=== PATIENT | female | born 1970 | race Caucasian/White ===

== ENCOUNTER 2024-10-27 10:52 | Outpatient (AMB) | payer OTHER, SELFPAY ==
[2024-10-27 11:03] VITALS: BP 130/82; PULSE 65; O2SAT 96; BMI 44.4
--- NOTE | 2024-10-27 11:03 | A.OFFVIS_ITS ---
Vital Signs 3 10/27/24 11:03 Height 5 ft 2 in Weight 242 lb 11.663 oz BMI 44.4 BP 130/82 Blood Pressure Location Lt brachial Position Sitting Pulse 65 Pulse Source Pulse Oximeter Pulse Oximetry (%) 96 Oxygen Delivery Method Room Air Intake Visit Reasons: Hx of papillary ca thyroid Intake Note: Patient present today for history of papillary ca thyroid. 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 History of PTC Had history of MNG, in her 30s , thinks she saw Dr. Lyles at some point , likely at [facility] Doesnt think she has FNAs, was referred to surgery for compressive symptoms 2013: s/p total thyroidectomy with Dr. Anu Jones at [facility]. was told there was PTC , but we dont have initial pathology available so not sure of AJCC stage, or JONATHAN initial Thinks she had a WBS a few years post surgery , not sure when , maybe diagnostic? Doesnt remember being hospitalized. Was following with Dr. Lyles at [facility] after with US neck and Tg levels, then saw Dr. Dutta in [place] for some time. last seen 2020. No recent neck US No recent Tg levels 09/27/24: TSH 49.5, free t4 0.62 Currently on levothyroxine 225 mcg daily , increased from 200 mcg a month ago. Takes it on an empty stomach at 4 or 5 AM in the morning , spaces breakfast out. Palpitations associated with anxiety, no tremors . Gained 30 lbs over end of 2023 and 2024 , due to lack of activity due to foot injury. Intermittent difficulty swallowing, nothing bothersome. Denies neck fullness , any lumps or bumps. Denies voice changes. Sister had thyroid disease. Niece from another sister has history of papillary thyroid cancer. No history of head or neck radiation Does have history of uterine cancer s/p hystrectomy, they left her ovaries intact in 2010, did not require chemo or radiation, doing well, following with [facility] Physical exam General: sitting comfortably in no acute distress HEENT: normocephalic/atraumatic, Neck: supple, symmetrical, Cardiac: normal heart sounds Pulm: normal breath sounds B/L, no added breath sounds Abd: not distended, no tenderness Extremities: no edema, no signs of myxedema PFSH Medical History (Updated 10/27/24 @ 11:39 by Jamila Dupont MD) Post-surgical hypothyroidism History of thyroid cancer Surgical History History of hysterectomy, supracervical Hx of dilation and curettage History of surgery Hx of section Hx of tonsillectomy Hx of total thyroidectomy Family History Mother Diabetes Hyperlipidemia History of hypertension Stroke Father Diabetes History of hypertension Hyperlipidemia Stroke GI bleed Social History (Updated 10/27/24 @ 11:09 by AMALIA Leigh) Alcohol intake: current Alcohol intake frequency: holidays/special occasions only Patient Tobacco Use Status: Never used Tobacco Physical Exam Vital Signs: Last Vital Signs Pulse 65 10/27/24 11:03 BP 130/82 10/27/24 11:03 Pulse Ox 96 10/27/24 11:03 Oxygen Delivery Method Room Air 10/27/24 11:03 BMI result Body Mass Index 44.4 Assessment & Plan Assessment & Plan (1) History of thyroid cancer: Code(s): Z85.850 - Personal history of malignant neoplasm of thyroid Category: Medical Plan: 53-year-old female with history of PTC, who was diagnosed with multinodular goiter sometime in her 30s, status post total thyroidectomy [address] Anu Jones at [facility], with surgical pathology showing PTC. I do not have any initial records of the pathology so unknown AJCC stage, unknown initial JONATHAN risk of recurrence. She was followed for a couple of years 1st at [facility] with Dr. Lyles then she switched care to Dr. Dutta in [facility] , she does not think she got radioactive iodine dose but at some point she had a whole-body scan. Has had surveillance ultrasound neck. She has not had any thyroid cancer follow up since 2020. At this time we will obtain an ultrasound of the neck as well as TG markers. We will try to obtain her previous records. on levothyroxine 225 mcg daily. Increased from 200 mcg daily about 4 weeks ago, when she was noted to have TSH at 49.5, with a free T4 low at 0.62. Depending on TG levels and ultrasound we will determine her TSH goal. At this time she has been doing well for over 10 years with no signs of recurrence. Likely TSH goal would be between 0.5-2. Plan: -obtain prior endocrinology records along with surgical pathology from 2012 -continue levothyroxine 225 mcg daily -ordered TSH, free T4, TG and TG antibody levels to be done in 2 weeks -ordered ultrasound of the neck -follow up in 7-8 weeks to discuss results (2) Post-surgical hypothyroidism: Code(s): E89.0 - Postprocedural hypothyroidism Category: Medical Plan: on levothyroxine 225 mcg daily. Increased from 200 mcg daily about 4 weeks ago, when she was noted to have TSH at 49.5, with a free T4 low at 0.62. Depending on TG levels and ultrasound we will determine her TSH goal. At this time she has been doing well for over 10 years with no signs of recurrence. Likely TSH goal would be between 0.5-2. Plan: -continue levothyroxine 225 mcg daily -ordered TSH, free T4 to be done in 2 weeks Plan I spent 45 minutes in reviewing the record, seeing the patient and documenting in the medical record. Orders: Orders 2 Thyroid Stimulating Hormone 1 Week E89.0 - Postprocedural hypothyroidism, Z85.850 - Personal history of malignant neoplasm of thyroid Thyroglobulin 1 Week E89.0 - Postprocedural hypothyroidism, Z85.850 - Personal history of malignant neoplasm of thyroid Thyroglobulin Antibodies 1 Week E89.0 - Postprocedural hypothyroidism, Z85.850 - Personal history of malignant neoplasm of thyroid Thyroglobulin Tumor Marker 1 Week E89.0 - Postprocedural hypothyroidism, Z85.850 - Personal history of malignant neoplasm of thyroid Free T4 (Free Thyroxine) 1 Week E89.0 - Postprocedural hypothyroidism, Z85.850 - Personal history of malignant neoplasm of thyroid US soft tiss head and/or neck Today E89.0 - Postprocedural hypothyroidism, Z85.850 - Personal history of malignant neoplasm of thyroid Patient Instructions: do blood work in 2 weeks Do ultrasound of the neck ,someone will call you to schedule this Please make sure it is done prior to follow up Coding Level of Care Code New Pt Level 4 (34226) Complex EM visit Add On G2211 Diagnoses History of thyroid cancer Z85.850 Post-surgical hypothyroidism E89.0 Time Spent (min) 45
--- OUTSIDE RECORDS SUMMARY | 2024-10-27 11:43 | XMS_ITS | Data Portability ---
Author Organization [place] - [facility],, GYPSY OH MD Address [address] [facility] [address] [place] [address] Assessment No assessment recorded. Plan of Treatment Reminders Order Date Submit Date Provider Last Modified By Organization Details Last Modified Time Details Appointments None recorded. Lab pap, LB, vaginal 2014 015 [facility], Cytopathology Service, [address] [place], [address], 5 11:33:36 fecal occult blood, stool 2014 015 [email or web address] 1 In-Office Order, Internal Use Only DO Not Attach Compendium DO Not Attach Compendium, Do Not Delete/merge, [id number] 5 11:21:53 ca 125, serum 2014 015 [facility], [address] [place], [address], 5 05:00:15 Referral None recorded. Procedures None recorded. Surgeries None recorded. Imaging ultrasoun d, pelvic transabdo beverly & transvagi nal - six month follow up after 11/2014 sonogram for likely 8 cm hydrosalp inx 2014 015 [facility] ([facility]), [address] [place], [address], 6 16:08:09 MAMMO, screening , digital, bilateral [email or web address] [address] [place], [address], 6 09:32:12 ultrasoun d, pelvic transabdo beverly & transvagi nal - repeat sonogram 6 weeks from 10/10/14, to assess the right ovarian cyst and left hydrosalp inx 2014 015 [facility]), [address] [place], [address], 5 09:21:07 ultrasoun d, pelvic transabdo beverly & transvagi nal - bilateral pelvic cystic masses, on CT, largest on left side is 9 cm by 5 cm 2014 015 [facility]), [address] [place], [address], 5 14:32:22 Medication Orders None recorded. Patient TargetsNo targets recorded. Patient Instructions Encounter Date Encounter Id Patient Instructions Last Modified By Organization Details Last Modified Time 09/12/2014 [id number] She is here as a new patient in this office, although I performed her hysterectomy at [facility] in 2008. She is seeing Dr. Martin for renal stones and was incidentally found to have a left adnexal 9 by 5 cm and right sided 5 by 3 cm tubular structures. She had a IVONNE in 2008, for precancer , and a prior section, did not have a tubal ligation. She is raising her 5 year old grandson, her has serious Crohn's disease and is presently hospitalized with infection ,she missed two months of work, recently, due to sciatica, it has been a difficult few years for her. Her PCP did a pap a year ago, it was normal. We discussed that based on the CT scan she may have ovarian cysts, or this could be, more likely, bilateral hydrosalpinx. Will check CA 125 and pelvic sonogram then return for annual exam and discussion of management options. We discussed possible Da Ramon excision of these masses, she is aware . Models and diagrams used, all questions answered. She is not symptomatic and would prefer to have her renal stones addressed first, and await her 's recovery from this present hospitalization before considering surgery. IF the tests suggest hydrosalpinx, and there is no significant free fluid, then this can likely wait a month or two. Face to face discussion 45 minutes [email or web address] Not available 09/12/2014 11:26:11 10/16/2014 [id number] She is here, accompanied by her sister, to discuss her recent pelvic sonogram that showed an 8 cm likely hydrosalpinx on the left and a 3.5 cm simple cyst of the right ovary. she is having no pain or issues with these, she does have renal stones. We had a long discussion concerning these issues. There is no increased blood flow to either structure, no free fluid, the cyst is simple and the tubular structure unremarkable save for its size. The CA 125 is normal, at 5. Likely each of these findings are benign, although they are aware that no guarantees can be made. The most reasonable course of action is to repeat the sonogram in 6 weeks to reassess the ovarian cyst. If it resolves then she could wait and follow the tubular structure over time, as it is likely a hydrosalpinx. If the cyst of the ovary persists then it may be a serous cystadenoma, and if it persists for longer than 3 months then would suggest minimally invasive surgery to address both the cyst and the tubular structure. All questions answered. Call if any pain occurs, repeat sonogram in 6 weeks. Face to face discussion 25 minutes [email or web address] Not available 10/16/2014 14:36:09 11/09/2014 [id number] She is here for annual exam, is doing well, her kidney stones lithotripsy and the stones are breaking up and passing now, she is hoping to have them all gone soon. She has an 8 cm hydrosalpinx and 3.5 cm ovarian cyst, repeat sonogram is for the end of November, then we will discuss surgical options. Her has severe Crohn's Disease and has been hospitalized several times recently , was at [facility]. She is taking Trazadone for sleep prn, usually twice a month. She appears to be doing well. She is advised to get 1500 mg of calcium daily into her diet and supplements combined. There is a health benefit with adequate vitamin D supplementation to at least 400 units daily, daily aerobic exercise of 30 minutes, and stress reduction. Monthly self breast exam was taught, and stressed, and is advised to call if she discovers any new mass in the breast. Seat belt use for herself and passengers are advised. There are significant health benefits of becoming and remainig fit, with an optimal BMI. There is a potential reduction in chronic discomfort, diminished risks of hypertension, diabetes, and heart disease with the proper weight management. With a recommended BMI there can be improved mobility as she ages. Strategies to reach and maintain her target weight were discussed in detail. Not available 11/09/2014 11:21:53 12/08/2014 [id number] She has a stable 8 by 3 cm hydrosalpinx. We discussed that it has no suspicious features and is not symptomatic, she has the option to follow this expectantly. Possible risks of surgery due to prior section and hysterectomy discussed, all questions answered. Will repeat sono in 6 months and have her call earlier prn. All questions answered. Face to face discussion 25 minutes Not available 12/08/2014 16:07:11 Reason for Referral None Reported. Results Created Date Observation Date Name Description Value Unit Range Abnormal Flag Note LastModifiedBy Organization Detail LastModifiedTime 11/10/1911/09/2014 fecal occul t blood , stool Occult Blood negati ve Not Available In-Office Order Internal Use Only DO Not Attach Compendium DO Not Attach Compendium, Do Not Delete/merge, [id number] 11/09/2014 11:05:58 09/13/19 15 09/12/2014 ca 125, serum comments [facility] [address] [place] [address] [phone] Not Available [facility] [address] [place], [address], 09/13/2014 05:00:15 09/13/1909/12/2014 ca 125, serum Ca125 5 U/mL <35 CA-12 5 resul t obtai veronica by [facility] metho d. Not Available [facility] [address] [place], [address], 09/13/2014 05:00:15 11/10/19 15 11/09/2014 pap, LB [id number] ThinP rep Pap, Image d: NEGAT YUN FOR SQUAM OUS INTRA EPITH ELIAL NEISHA Wallace AND RANDELL MCNALLY . Emilee Silva ams, CT( CP) (Case elect chery liao edwin d 11 13 2014) ADEQU ACY: Satis facto ry. SOURC E: ThinP rep Pap, Cervi nirav, Image d CLINI NIRAV INFOR MATIO N: HPV If Diagn osis of ASCUS . Hyste recto my * Cytop athol ogy servi zahira provi ded by [facility] at the above addre ss. Not Available [facility], Cytopathology Service [address] [place], [address], 11/13/2014 11:33:36 09/08/19 15 08/22/2014 imagi ng/di agnos tic resul t No observ ation record ed. Not Available 08/2014 08:31:16 10/13/19 15 10/10/2014 ultra sound , pelvi c trans abdom inal & trans vagin al No observ ation record ed. [email or web address] Not Available 2014 10:51:06 11/25/19 15 2014 ultra sound , pelvi c trans abdom inal & trans vagin al No observ [place]ion [email or web address], [address], 12/01/2014 14:52:45 05/22/19 16 05/22/2015 ultra sound , pelvi c trans abdom inal & trans vagin al No observ ation record ed. [email or web address] Not Available 2015 13:11:55 Result Notes None recorded. Problems Name Problem SNOMED Code Status Onset Date Resolution Date Notes Provider Name and Address Organization Details Recorded Time Pelvic mass 69245033 Active Gypsy Oh MD [address] [facility],[address], [place], [address], [place] - [facility], 5 11:26:11 Cyst of ovary 12809212 Active Gypsy Oh MD [address] [facility],[address], [place], [address], [place] - [facility], 5 14:36:09 Hypothyroidism 80254280 Artur Oh MD [address], [place], [address], [place] - [facility], 5 11:21:31 Calculus of kidney and ureter 013382488 Artur Oh MD [address], [place], [address], [place] [facility], 5 11:21:31 Depressive disorder [id number] Artur Oh MD [address], [place], [address], [place] [facility], 5 11:21:31 Sleep apnea [id number] Artur Oh MD [address], [place], [address], [place] - [facility], 5 11:21:31 Asthma [id number] Artur Oh MD [address], [place], [address], [place] - [facility], 5 11:21:31 Sciatica [id number] Artur Oh MD [address], [place], [address], [place] [facility], 5 11:21:31 Hydrosalpinx [id number] Artur Oh MD [address], [place], [address], [place] [facility], 5 16:07:11 Problem Notes None recorded. Procedures Surgical History Date Name Laterality Status Provider Name and Address Organization Details Recorded Time 04/06/19 15 Other completed Camila Tao [facility], 10/16/2014 13:10:06 04/06/19 13 Thyroid Surgery completed Lauren Tao [facility], 09/12/2014 10:15:46 04/06/19 09 Hysterectomy completed Gypsy Oh MD [address] [facility],[address], [place], [address], [place] - [facility], 09/12/2014 10:22:32 04/06/18 98 Other completed Lauren Levy [place] - [facility], 09/12/2014 10:15:46 04/06/18 90 Caesarean Section completed Lauren Levy [place] - [facility], 09/12/2014 10:15:46 04/06/18 86 Tonsillectomy completed Lauren Levy [place] - [facility], 09/12/2014 10:15:46 Imaging Results None recorded. Procedure Notes None recorded. Medical Equipment None Reported. Allergies No known drug allergies Medications Name Sig Start Date Stop Date Status Note LastModified by Organization Details LastModified Time fluoxetine 40 mg capsule active Not Available Not Available N ot Available cyclobenzaprine 10 mg tablet active Not Available Not Available Not Available gabapentin 600 mg tablet active Not Available Not Available No t Available ibuprofen 800 mg tablet active Not Available Not Available No t Available hydrocodone 5 mg-acetaminophe n 325 mg tablet active Not Available Not Availa ble Not Available ciprofloxacin 250 mg tablet active Not Available Not Availabl e Not Available tamsulosin 0.4 mg capsule active Not Available Not Available N ot Available trazodone 100 mg tablet active Not Available Not Available No t Available prednisone 50 mg tablet active Not Available Not Available No t Available levothyroxine 150 mcg tablet active Not Available Not Availab le Not Available gabapentin 300 mg capsule active Not Available Not Available N ot Available hydrochlorothia zide 25 mg tablet active Not Available Not Available Not Available cholecalciferol (vitamin D3) 125 mcg (5,000 unit) capsule TAKE ONE CAPSULE BY MOUTH EVERY DAY active Not Available Not Available No t Available diazepam 5 mg tablet active Not Available Not Available Not Available amoxicillin 875 mg-potassium clavulanate 125 mg tablet active Not Available Not Available No t Available oxycodone 5 mg tablet active Not Available Not Available Not Available bupropion HCl XL 300 mg 24 hr tablet, extended release active Not Available Not Available Not Available bupropion HCl XL 150 mg 24 hr tablet, extended release active Not Available Not Available Not Available oxycodone 10 mg tablet active Not Available Not Available Not Available OxyContin 15 mg tablet,crush resistant,exten ded release active Not Available Not Available Not Available Vitals Date Recorded Body weight Body height Body mass index (BMI) Heart rate Systolic And Diastolic Provider Name and Address Organization Details Last Updated DateTime 09/12/2014 689344.6 1458 g 160.02 cm 41.5 kg/m2 74 /min 121/64 mm[Hg] Lauren Hernandez in [facility], 09/12/2014 10:15:46 Date Recorded Body height Body weight Heart rate Body mass index (BMI) Systolic And Diastolic Provider Name and Address Organization Details Last Updated DateTime 10/16/2014 160.02 cm 849410.0 6036 g 93 /min 40.4 kg/m2 142/86 mm[Hg] Camila Hernandez in [facility], 10/16/2014 13:08:25 Date Recorded Body height Body weight Heart rate Body mass index (BMI) Systolic And Diastolic Provider Name and Address Organization Details Last Updated DateTime 11/09/2014 160.02 cm 220456.2 0695 g 79 /min 41.6 kg/m2 125/83 mm[Hg] Camila Hernandez in [facility], 11/09/2014 11:14:01 Date Recorded Body height Body mass index (BMI) Heart rate Body weight Systolic And Diastolic Provider Name and Address Organization Details Last Updated DateTime 12/08/2014 160.02 cm 41.8 kg/m2 96 /min 499017.0 89005 g 136/86 mm[Hg] Lauren Hernandez in [facility], 12/08/2014 14:42:32 Social History Question Answer Notes LastModified by Organizat ion Details LastModified Time Tobacco Smoking Status Never Smoker Not Available [employer] 02/07/2020 03:19:42 What Is Your Level Of Caffeine Consumption? Occasional [id number] Information not available 02/07/2020 What Type Of Diet Are You Following? REGULAR [id number] Information not available 02/07/2020 Which Illicit Or Recreational Drugs Have You Used? No [id number] Information not available 02/07/2020 Do You Reside In Or Have You Traveled To An Area Where Ebola Virus Transmission Is Active? No [id number] Information not available 02/07/2020 Education 12 Information no t available 09/12/2014 Marital Status Informatio n not available 09/12/2014 Are You Sexually Active? Yes [id number] Information not available 02/07/2020 How Much Tobacco Do You Smoke? No [id number] Information not available 02/07/2020 General Stress Level High Information not available 09/12/2014 How Many Years Have You Smoked Tobacco? 0 [id number] Information not available 02/07/2020 Sex: Unknown Functional Status Question Answer Note LastModified by Organizat ion Details LastModified Time What is your level of alcohol consumption? Occasional very rare. [id number] Information not available 02/07/2020 What is your occupation? [employer] Information not available 09/12/2014 What is your exercise level? Occasional [id number] Information not available 02/07/2020 Mental Status None recorded. Family History Relationship Description Onset Age of this Age Resolved Age Notes LastModified by Organization Details LastModified Time Maternal Grandmother Malignant tumor of breast Not available 07/2014 16:07:11 Unspecified Relation Malignant tumor of cervix cervic al cancer and thyroi d cancer ,, neice Not available 12/08/2014 16:07:11 Mother Diabetes mellitus Not available 07/2014 16:07:11 Mother Hypertensive disorder Not available 07/2014 16:07:11 Mother Problem stroke Not availab le 12/08/2014 16:07:11 Father Diabetes mellitus Not available 07/2014 16:07:11 Father Hypercholest erolemia Not available 07/2014 16:07:11 Medical History Condition Response Anesthesia complications N High Blood Pressure N Kidney or Bladder Problems N Thyroid Problems Y Depression Y Lung Disease N GI Problems N Defects or Inherited Disease N Anemia N History of Ovarian Cancer N History of Breast Cancer N BRCA testing in past N Psychiatric Illness N Anxiety Disorder Y Diabetes N Arthritis Y Headaches or Migraines N Infertility N Asthma N Endometriosis Y History of Cancer Y Hepatitis N Heart Disease N Hypertension N Gynecological History Statement/Question Response Age at Menarche 11 Age at First Child 18 Obstetrics History GPAL:G 2 P 2 0 0 2 Type Value Full Term 2 Living 2 Total 2 Past Encounters Encounter ID Performer Location Encounter Start Date Encounter Closed Date Diagnosis/Indication Diagnosis SNOMED-CT Code Diagnosis ICD10 Code Diagnosis Note [id number] MD GYPSY Patton MD [address] [place] [address] 09/12/2014 09:48:24 09/12/2014 11:42:35 Pelvic mass 91514488 Cyst of ovary 77405242 [id number] MD GYPSY Patton MD [address] [place] [address] 10/16/2014 12:56:18 10/17/2014 07:57:16 Cyst of ovary 54278994 Hydrosalpinx 07397941 [id number] MD GYPSY aPtton MD [address] [place] [address] 11/09/2014 10:56:19 11/09/2014 16:00:53 Specialized medical examination 49638471 Screening for malignant neoplasm of rectum 509924577 Screening mammography 57155834 [id number] MD GYPSY Patton MD [address] [place] [address] 12/08/2014 14:34:43 12/08/2014 16:16:34 Hydrosalpinx 65463908 Health Concerns Section Related Observation LastModified by Organization Detai ls LastModified Time None Recorded Concern Status LastModified by Organization Details LastModified Time None Recorded Advance Directives Directive None Recorded Payers Insurance Date Sequence Insurance Name Policy Number Policy Eisenberg Covered Member ID Eisenberg Member ID Guarantor Name 12/05/2014 1 [place] C[place] [id number] Pavan Francois [id number] Jodee Francois Notes Date Note Type Note Provider Name and Address Organization Details Recorded Time 09/12/2014 text/html ROS as noted in the HPI Gypsy Oh MD [address], [place], [address], [place] [facility], 09/12/2014 11:29:37 10/16/2014 text/html ROS as noted in the HPI Gypsy Oh MD [address], [place], [address], [place] [facility], 10/16/2014 14:40:33 11/09/2014 text/html ROS as noted in the HPI Gypsy Oh MD [address], [place], [address], [place] [facility], 11/09/2014 13:34:35 12/08/2014 text/html ROS as noted in the HPI Gypsy Oh MD [address], [place], [address], [place] [facility], 12/08/2014 16:07:47 OBGyn Episode No OBEpisode recorded.
== END 2024-10-27 11:47 | disposition home or self-care (01) ==
LOC: HO.ENCR 10:53
PROVIDERS: PCP Internal Medicine; Visit Provider Student in an Organized Health Care Education/Training Program
DX: Z85.850 Personal history of malignant neoplasm of thyroid (principal); E89.0 Postprocedural hypothyroidism
CPT/HCPCS: 99204; G2211

== ENCOUNTER → 2024-10-27 10:52 | Outpatient (BNVA) | payer OTHER, SELFPAY | PROVIDERS: PCP Internal Medicine; Visit Provider Student in an Organized Health Care Education/Training Program | DX: E89.0 Postprocedural hypothyroidism (principal); Z85.850 Personal history of malignant neoplasm of thyroid | CPT/HCPCS: 99202 ==

== ENCOUNTER 2024-12-07 11:48 | Outpatient (REF) | payer OTHER, SELFPAY ==
[2024-12-07 13:31] LABS: Free T4 (Free Thyroxine) 2.35 ng/dL (0.71-1.85); Thyroid Stimulating Hormone 0.03 uIU/mL (0.32-4.0)
[2024-12-08 19:27] LABS: Thyroglobulin 4.1 ng/mL; Thyroglobulin Antibodies <1 IU/mL (< or = 1)
== END 2024-12-07 11:49 | disposition home or self-care (01) ==
LOC: HO.LAB 11:48
PROVIDERS: PCP Internal Medicine; Visit Provider Student in an Organized Health Care Education/Training Program
DX: E89.0 Postprocedural hypothyroidism (principal); Z85.850 Personal history of malignant neoplasm of thyroid
CPT/HCPCS: 36415; 84432; 84439; 84443; 86800

== ENCOUNTER 2024-12-08 13:51 | Outpatient (REF) | payer OTHER, SELFPAY ==
--- NOTE | ~2024-12-08 | US_ITS ---
EXAMINATION: US NECK CLINICAL INFORMATION: Malignant neoplasm of thyroid. Previous total thyroidectomy COMPARISON: None available. TECHNIQUE: Linear transducer johsnon-scale examination of the neck was performed. FINDINGS: There are multiple small lymph nodes seen. right neck: 1. Level 1B lymph node measures 1.0 x 0.7 x 0.9 cm. It has normal appearance. 2. Level 3 lymph node measures 1.4 x 0.5 x 0.9 cm. It has normal echotexture. 3. Level for lymph node measures 1.3 x 0.5 x 0.5 cm. It has normal echotexture NECK: 1. Level 1B lymph node measures 0.9 x 0.4 x 0.6 cm and has normal echotexture. 2. Level 2 lymph node measures 0.7 x 0.6 x 0.8 cm. It has normal appearance. 3. Level 3 lymph node measures 1.5 x 0.5 x 0.77 cm and it has normal echotexture. US/US soft tiss head and/or neck IMPRESSION: Bilateral benign-appearing neck lymph nodes.. Electronically signed by: Nilson Coates MD 12/09/2024 08:08 AM EDT
== END 2024-12-08 13:52 | disposition home or self-care (01) ==
LOC: HO.US 13:51
PROVIDERS: PCP Internal Medicine; Visit Provider Student in an Organized Health Care Education/Training Program
DX: E89.0 Postprocedural hypothyroidism (principal); Z85.850 Personal history of malignant neoplasm of thyroid
CPT/HCPCS: 76536

== ENCOUNTER → 2024-12-08 13:53 | Outpatient (BNV) | payer OTHER, SELFPAY | PROVIDERS: PCP Internal Medicine; Visit Provider Radiology Diagnostic Radiology | DX: Z85.850 Personal history of malignant neoplasm of thyroid (principal) | CPT/HCPCS: 76536 ==

== ENCOUNTER 2024-12-13 08:42 | Outpatient (AMB) | payer OTHER, SELFPAY ==
[2024-12-13 08:44] VITALS: BP 124/76; PULSE 70; O2SAT 97; BMI 42.9
--- NOTE | 2024-12-13 08:44 | A.OFFVIS_ITS ---
Vital Signs 3 12/13/24 08:44 Height 5 ft 2 in Weight 234 lb 12.677 oz BMI 42.9 BP 124/76 Blood Pressure Location Lt brachial Position Sitting Pulse 70 Pulse Source Pulse Oximeter Pulse Oximetry (%) 97 Oxygen Delivery Method Room Air Intake Visit Reasons: Hx of papillary ca thyroid Intake Note: Patient present today for Hx of papillary thyroid cancer. 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 Now with biochemically incomplete response. and postoperative hypothyroidism. History of PTC Had history of MNG, in her 30s , thinks she saw Dr. Lyles at some point , likely at [facility] Doesnt think she has FNAs, was referred to surgery for compressive symptoms 2013: s/p total thyroidectomy with Dr. Anu Jones at [facility]. was told there was PTC , Per records obtained pathology showed a right superior 0.5 cm unifocal papillary microcarcinoma with no extrathyroidal extension, negative margins, AJCC stage I pT1a NX MX, JONATHAN initial low risk of recurrence? Thinks she had a WBS a few years post surgery , not sure when , maybe diagnostic? Doesnt remember being hospitalized. Was following with Dr. Lyles at [facility] after with US neck and Tg levels, then saw Dr. Dutta in [place] for some time. last seen 2022. 06/18/2022: TSH 0.01, free T4 1.9, TG antibody less than 1, TG 1.3 08/25/2022: Ultrasound neck showed normal-appearing level 3 lymph nodes bilaterally. 09/27/24: TSH 49.5, free t4 0.62 Interval history Currently on levothyroxine 225 mcg daily , increased from 200 mcg September 2024 12/07/2024: TSH 0.03, free T4 2.35, TG 3.7, TG antibody less than 1 12/08/2024: Ultrasound neck showed bilateral normal-appearing lymph nodes Takes it on an empty stomach at 4 or 5 AM in the morning , spaces breakfast out. Palpitations associated with anxiety, no tremors . Gained 30 lbs over end of 2023 and 2024 , due to lack of activity due to foot injury. Intermittent difficulty swallowing, nothing bothersome. Denies neck fullness , any lumps or bumps. Denies voice changes. Sister had thyroid disease. Niece from another sister has history of papillary thyroid cancer. No history of head or neck radiation Does have history of uterine cancer s/p hystrectomy, they left her ovaries intact in 2010, did not require chemo or radiation, doing well, following with [facility] Physical exam General: sitting comfortably in no acute distress HEENT: normocephalic/atraumatic, Neck: supple, symmetrical, Cardiac: normal heart sounds Pulm: normal breath sounds B/L, no added breath sounds Abd: not distended, no tenderness Extremities: no edema, no signs of myxedema Laboratory Tests 12/07/24 12:13 TSH 0.03 L Free T4 2.35 H Thyroglobulin 3.7 H Thyroglobulin Antibody <1 US NECK 12/08/2024 CLINICAL INFORMATION: Malignant neoplasm of thyroid. Previous total thyroidectomy COMPARISON: None available. TECHNIQUE: Linear transducer johnson-scale examination of the neck was performed. FINDINGS: There are multiple small lymph nodes seen. right neck: 1. Level 1B lymph node measures 1.0 x 0.7 x 0.9 cm. It has normal appearance. 2. Level 3 lymph node measures 1.4 x 0.5 x 0.9 cm. It has normal echotexture. 3. Level for lymph node measures 1.3 x 0.5 x 0.5 cm. It has normal echotexture NECK: 1. Level 1B lymph node measures 0.9 x 0.4 x 0.6 cm and has normal echotexture. 2. Level 2 lymph node measures 0.7 x 0.6 x 0.8 cm. It has normal appearance. 3. Level 3 lymph node measures 1.5 x 0.5 x 0.77 cm and it has normal echotexture. US/US soft tiss head and/or neck IMPRESSION: Bilateral benign-appearing neck lymph nodes.. Electronically signed by: Nilson Coates MD 12/09/2024 08:08 AM EDT [facility] Medical History (Updated 10/27/24 @ 11:39 by Jamila Dupont MD) Post-surgical hypothyroidism History of thyroid cancer Surgical History History of hysterectomy, supracervical Hx of dilation and curettage History of surgery Hx of section Hx of tonsillectomy Hx of total thyroidectomy Family History Mother Diabetes Hyperlipidemia History of hypertension Stroke Father Diabetes History of hypertension Hyperlipidemia Stroke GI bleed Social History (Updated 10/27/24 @ 11:09 by AMALIA Leigh) Alcohol intake: current Alcohol intake frequency: holidays/special occasions only Patient Tobacco Use Status: Never used Tobacco Physical Exam Vital Signs: Last Vital Signs Pulse 70 12/13/24 08:44 BP 124/76 12/13/24 08:44 Pulse Ox 97 12/13/24 08:44 Oxygen Delivery Method Room Air 12/13/24 08:44 BMI result Body Mass Index 42.9 Assessment & Plan Assessment & Plan (1) History of thyroid cancer: Code(s): Z85.850 - Personal history of malignant neoplasm of thyroid Category: Medical Plan: 54-year-old female with history of PTC, who was diagnosed with multinodular goiter sometime in her 30s, status post total thyroidectomy [address] Anu Jones at [facility], with surgical pathology showing right superior 0.5 cm unifocal papillary microcarcinoma with no extrathyroidal extension, negative margins, AJCC stage I pT1a NX, JONATHAN initial low risk of recurrence? Now with biochemically incomplete response. She was followed for a couple of years 1st at [facility] with Dr. Lyles then she switched care to Dr. Dutta in [facility] , she does not think she got radioactive iodine dose but at some point she had a whole-body scan. Has had surveillance ultrasound neck. She has not had any thyroid cancer follow up since 2022. 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 So at that time she was in indeterminate response to therapy. However blood work from December 2024 showed 12/07/2024: TSH 0.03, free T4 2.35, TG 3.7, TG antibody less than 1 . Given this climb been her thyroglobulin levels despite such a low TSH, I am very much concerned about a possible recurrence. This is concerning for biochemically incomplete response to therapy. However ultrasound from December 2024 showed normal-appearing bilateral lymph nodes. Given biochemically incomplete response to therapy, TSH goal would be between 0.1-0.5. I would like to repeat her thyroglobulin markers along with her TSH by decreasing the dose of levothyroxine as her TSH is a little too low right now, and see what her repeat thyroglobulin levels are in about 6-8 weeks. Then I will see her back in consider doing a whole-body scan if TG levels remain elevated. Currently on levothyroxine 225 mcg daily , increased from 200 mcg September 2024 Plan: -reduce levothyroxine to 212.5 mcg daily with 200+ 12.5 mcg tablet daily -ordered TSH, free T4, TG and TG antibody levels to be done in 6 weeks -follow up in 7-8 weeks to discuss results (2) Post-surgical hypothyroidism: Code(s): E89.0 - Postprocedural hypothyroidism Category: Medical Plan: Given biochemically incomplete response to therapy, TSH goal would be between 0.1-0.5. I would like to repeat her thyroglobulin markers along with her TSH by decreasing the dose of levothyroxine as her TSH is a little too low right now, and see what her repeat thyroglobulin levels are in about 6-8 weeks. Then I will see her back in consider doing a whole-body scan if TG levels remain elevated. Currently on levothyroxine 225 mcg daily , increased from 200 mcg September 2024 Plan: -reduce levothyroxine to 212.5 mcg daily with 200+ 12.5 mcg tablet daily -ordered TSH, free T4, TG and TG antibody levels to be done in 6 weeks Plan I spent 30 minutes in reviewing the record, seeing the patient and documenting in the medical record. Orders: Orders 2 Thyroid Stimulating Hormone 6 Weeks E89.0 - Postprocedural hypothyroidism, Z85.850 - Personal history of malignant neoplasm of thyroid Thyroglobulin 6 Weeks E89.0 - Postprocedural hypothyroidism, Z85.850 - Personal history of malignant neoplasm of thyroid Thyroglobulin Tumor Marker 6 Weeks E89.0 - Postprocedural hypothyroidism, Z85.850 - Personal history of malignant neoplasm of thyroid Free T4 (Free Thyroxine) 6 Weeks E89.0 - Postprocedural hypothyroidism, Z85.850 - Personal history of malignant neoplasm of thyroid Thyroglobulin Antibodies 6 Weeks E89.0 - Postprocedural hypothyroidism, Z85.850 - Personal history of malignant neoplasm of thyroid Medications: New 2 levothyroxine 200 mcg PO DAILY 90 tabs 5RF Changed 2 From levothyroxine 25 mcg PO DAILY To levothyroxine 12.5 mcg (1/2 x 25 mcg) PO DAILY 45 tabs 5RF Patient Instructions: Reduce levothyroxine to 212.5 mcg daily (200 mcg plus half a tablet of 25 mcg daily) Do blood work a week prior to next follow up in February 2025 Coding Level of Care Code Est Pt Level 4 (38659) Complex EM visit Add On G2211 Diagnoses History of thyroid cancer Z85.850 Post-surgical hypothyroidism E89.0 Time Spent (min) 30
== END 2024-12-13 09:21 | disposition home or self-care (01) ==
LOC: HO.ENCR 08:43
PROVIDERS: PCP Internal Medicine; Visit Provider Student in an Organized Health Care Education/Training Program
DX: Z85.850 Personal history of malignant neoplasm of thyroid (principal); E89.0 Postprocedural hypothyroidism
CPT/HCPCS: 99214; G2211

== ENCOUNTER → 2024-12-13 08:42 | Outpatient (BNVA) | payer OTHER, SELFPAY | PROVIDERS: PCP Internal Medicine; Visit Provider Student in an Organized Health Care Education/Training Program | DX: E89.0 Postprocedural hypothyroidism (principal); Z85.850 Personal history of malignant neoplasm of thyroid; Z68.41 Body mass index [BMI] 40.0-44.9, adult | CPT/HCPCS: 99212 ==

== ENCOUNTER 2025-03-06 10:42 | Outpatient (REF) | payer OTHER, SELFPAY ==
[2025-03-06 12:45] LABS: Free T4 (Free Thyroxine) 1.56 ng/dL (0.71-1.85); Thyroid Stimulating Hormone 0.01 uIU/mL (0.32-4.0)
[2025-03-07 07:29] LABS: Thyroglobulin 6.7 ng/mL; Thyroglobulin Antibodies <1 IU/mL (< or = 1)
== END 2025-03-06 10:43 | disposition home or self-care (01) ==
LOC: HO.LAB 10:42
PROVIDERS: PCP Internal Medicine; Visit Provider Student in an Organized Health Care Education/Training Program
DX: Z01.84 Encounter for antibody response examination (principal); E89.0 Postprocedural hypothyroidism; Z85.850 Personal history of malignant neoplasm of thyroid
CPT/HCPCS: 36415; 84432; 84439; 84443; 86800

== ENCOUNTER 2025-03-22 15:43 | Outpatient (AMB) | payer OTHER, SELFPAY ==
[2025-03-22 15:45] VITALS: BP 132/82; PULSE 76; O2SAT 96; BMI 43.4
--- NOTE | 2025-03-22 15:45 | A.OFFVIS_ITS ---
Vital Signs 3 03/22/25 15:45 Height 5 ft 2 in Weight 237 lb 7.005 oz BMI 43.4 BP 132/82 Blood Pressure Location Lt brachial Position Sitting Pulse 76 Pulse Source Pulse Oximeter Pulse Oximetry (%) 96 Oxygen Delivery Method Room Air Intake Visit Reasons: Hx of papillary ca thyroid Intake Note: Patient present today for Hx of papillary thyroid cancer. 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 Anu Jones at [facility] with pathology showing right superior 0.5 cm unifocal papillary microcarcinoma with no extrathyroidal extension, negative margins, AJCC stage I pT1a NX, JONATHAN initial low risk of recurrence? Now with biochemically incomplete response. and postoperative hypothyroidism. The patient last saw Dr. Dupont a 12/13/2024 History of PTC Had history of MNG, in her 30s , thinks she saw Dr. Lyles at some point , likely at [facility] Doesnt think she has FNAs, was referred to surgery for compressive symptoms 2013: s/p total thyroidectomy with Dr. Anu Jones at [facility]. was told there was PTC , Per records obtained pathology showed a right superior 0.5 cm unifocal papillary microcarcinoma with no extrathyroidal extension, negative margins, AJCC stage I pT1a NX MX, JONATHAN initial low risk of recurrence? Thinks she had a WBS a few years post surgery , not sure when , maybe diagnostic? Doesnt remember being hospitalized. Was following with Dr. Lyles at [facility] after with US neck and Tg levels, then saw Dr. Dutta in [place] for some time. last seen 2022. 06/18/2022: TSH 0.01, free T4 1.9, TG antibody less than 1, TG 1.3 08/25/2022: Ultrasound neck showed normal-appearing level 3 lymph nodes bilaterally. 09/27/24: TSH 49.5, free t4 0.62 Interval history Currently on levothyroxine 225 mcg daily , increased from 200 mcg September 2024 12/07/2024: TSH 0.03, free T4 2.35, TG 3.7, TG antibody less than 1 12/08/2024: Ultrasound neck showed bilateral normal-appearing lymph nodes Takes it on an empty stomach at 4 or 5 AM in the morning , spaces breakfast out. Palpitations associated with anxiety, no tremors . Gained 30 lbs over end of 2023 and 2024 , due to lack of activity due to foot injury. Intermittent difficulty swallowing, nothing bothersome. Denies neck fullness , any lumps or bumps. Denies voice changes. Sister had thyroid disease. Niece from another sister has history of papillary thyroid cancer. No history of head or neck radiation Does have history of uterine cancer s/p hystrectomy, they left her ovaries intact in 2010, did not require chemo or radiation, doing well, following with [facility] Laboratory Tests 12/07/24 12:13 TSH 0.03 L Free T4 2.35 H Thyroglobulin 3.7 H Thyroglobulin Antibody <1 US NECK 12/08/2024 CLINICAL INFORMATION: Malignant neoplasm of thyroid. Previous total thyroidectomy COMPARISON: None available. TECHNIQUE: Linear transducer johnson-scale examination of the neck was performed. FINDINGS: There are multiple small lymph nodes seen. right neck: 1. Level 1B lymph node measures 1.0 x 0.7 x 0.9 cm. It has normal appearance. 2. Level 3 lymph node measures 1.4 x 0.5 x 0.9 cm. It has normal echotexture. 3. Level for lymph node measures 1.3 x 0.5 x 0.5 cm. It has normal echotexture NECK: 1. Level 1B lymph node measures 0.9 x 0.4 x 0.6 cm and has normal echotexture. 2. Level 2 lymph node measures 0.7 x 0.6 x 0.8 cm. It has normal appearance. 3. Level 3 lymph node measures 1.5 x 0.5 x 0.77 cm and it has normal echotexture. US/US soft tiss head and/or neck IMPRESSION: Bilateral benign-appearing neck lymph nodes.. Electronically signed by: Nilson Coates MD 12/09/2024 08:08 AM EDT RP On levothyroxine 212.5 mcg mcg q.d. . Has detectable thyroglobulin with TSH suppression [facility] Medical History (Updated 10/27/24 @ 11:39 by Jamila Dupont MD) Post-surgical hypothyroidism History of thyroid cancer Surgical History History of hysterectomy, supracervical Hx of dilation and curettage History of surgery Hx of section Hx of tonsillectomy Hx of total thyroidectomy Family History Mother Diabetes Hyperlipidemia History of hypertension Stroke Father Diabetes History of hypertension Hyperlipidemia Stroke GI bleed Social History Alcohol intake: current Alcohol intake frequency: holidays/special occasions only Patient Tobacco Use Status: Never used Tobacco Physical Exam Vital Signs: Last Vital Signs Pulse 76 03/22/25 15:45 BP 132/82 03/22/25 15:45 Pulse Ox 96 03/22/25 15:45 Oxygen Delivery Method Room Air 03/22/25 15:45 BMI result Body Mass Index 43.4 Const Other: Status post total thyroidectomy scar. There was the absence of cervical adenopathy Assessment & Plan Assessment & Plan (1) History of thyroid cancer: Code(s): Z85.850 - Personal history of malignant neoplasm of thyroid Category: Medical Plan: This is a 54-year-old white female with a history of papillary thyroid cancer status post total thyroidectomy with radioactive iodine therapy. She has a detectable thyroglobulin levels but negative neck ultrasound. She is being replaced with 212.5 mcg levothyroxine. TSH is still suppressed but free T4 is coming to normal range indicating adequate mild TSH suppression with recovery Plan is to continue the current levothyroxine dose. We will have patient follow up with Dr. Dupont who is contemplating doing a total body scan with Thyrogen because of the detectable thyroglobulin levels. She will see Dr. Dupont in the next 2-3 months Coding Level of Care Code Est Pt Level 3 (62139) Diagnoses History of thyroid cancer Z85.850
--- OUTSIDE RECORDS SUMMARY | 2025-03-22 20:35 | XMS_ITS | Data Portability ---
Author Organization [place] - [facility],, GYPSY OH MD Address [address] [place] [address] Assessment No assessment recorded. Plan of Treatment Reminders Order Date Submit Date Provider Last Modified By Organization Details Last Modified Time Details Appointments None recorded. Lab pap, LB, vaginal 2014 015 [facility], Cytopathology Service, [address] [place], [address], 5 11:33:36 fecal occult blood, stool 2014 015 [email or web address] 1 In-Office Order, Internal Use Only DO Not Attach Compendium DO Not Attach Compendium, Do Not Delete/merge, [id number] 5 11:21:53 ca 125, serum 2014 015 [email or web address], [address] [place], [address], 5 05:00:15 Referral None recorded. Procedures None recorded. Surgeries None recorded. Imaging ultrasoun d, pelvic transabdo beverly & transvagi nal - six month follow up after 11/2014 sonogram for likely 8 cm hydrosalp inx 2014 015 [facility] ([facility]), [address] [place], [address], 6 16:08:09 MAMMO, screening , digital, bilateral [email or web address] [address] [facility] [address] [place], [address], 6 09:32:12 ultrasoun d, pelvic transabdo beverly & transvagi nal - repeat sonogram 6 weeks from 10/10/14, to assess the right ovarian cyst and left hydrosalp inx 2014 015 [facility] [address] [place], [address], 5 09:21:07 ultrasoun d, pelvic transabdo beverly & transvagi nal - bilateral pelvic cystic masses, on CT, largest on left side is 9 cm by 5 cm 2014 015 [facility] [address] [place], [address], 5 14:32:22 Medication Orders None recorded. Patient TargetsNo targets recorded. Patient Instructions Encounter Date Encounter Id Patient Instructions Last Modified By Organization Details Last Modified Time 09/12/2014 [id number] She is here as a new patient in this office, although I performed her hysterectomy at [facility] in 2008. She is seeing Dr. Martin [...] two. Face to face discussion [facility] minutes [email or web address] Not available 09/12/2014 11:26:11 10/16/2014 [id number] She is here, accompanied by her sister, [...] weeks. [facility] face [email or web address] Not available 10/16/2014 14:36:09 11/09/2014 [id number] She is here for annual exam, is [...] hospitalized several times recently , was at [facility]. She is taking Trazadone for sleep prn, [...] in detail. Not available 11/09/2014 11:21:53 12/08/2014 [id number] She has a stable 8 by 3 [...] DO Not Attach Compendium, Do Not Delete/merge, [id number] 11/09/2014 11:05:58 09/13/19 15 09/12/2014 ca 125, serum comments [facility] [address] [place] [address] [phone] Not Available [facility] [address] [place], [address], 09/13/2014 05:00:15 09/13/1909/12/2014 ca 125, serum Ca125 5 U/mL <35 CA-12 5 resul t obtai veronica [facility]. Not Available [facility] [address] [place], [address], 09/13/2014 05:00:15 11/10/19 15 11/09/2014 pap, LB [id number] ThinP rep Pap, Image d: NEGAT YUN [...] at the above addre ss. Not Available [facility], Cytopathology Service [address] [place], [address], 11/13/2014 11:33:36 09/08/19 15 08/22/2014 imagi ng/di [...] al No observ ation record [email or web address], [address], 12/01/2014 14:52:45 05/22/19 16 05/22/2015 ultra sound , pelvi c trans abdom inal & trans vagin al No observ ation record ed. [email or web address] Not Available 2015 13:11:55 Result Notes None recorded. Problems Name Problem SNOMED Code Status Onset Date Resolution Date Notes Provider Name and Address Organization Details Recorded Time Pelvic mass 53687418 Active Gypsy Oh MD [address] [facility],[address], [place], [address], [place] [facility], 5 11:26:11 Cyst of ovary 82525193 Active Gypsy Oh MD [address] [facility] [address] [facility],[address], [place], [address], [place] - [facility], 5 14:36:09 Hypothyroidism 48936012 Artur Oh MD [address], [place], [address], [place] [facility], 5 11:21:31 Calculus of kidney and ureter 251663380 Artur Oh MD [address], [place], [address], [place] [facility], 5 11:21:31 Depressive disorder 52755238 Artur Oh MD [address], [place], [address], [place] [facility], 5 11:21:31 Sleep apnea 62076213 Artur Oh MD [address], [place], [address], [place] [facility], 5 11:21:31 Asthma [id number] Artur Oh MD [address], [place], [address], [place] [facility], 5 11:21:31 Sciatica [id number] Artur Oh MD [address], [place], [address], [place] [facility], 5 11:21:31 Hydrosalpinx [id number] Artur Oh MD [address], [place], [address], [place] [facility], 5 16:07:11 Problem Notes None recorded. Procedures Surgical History Date Name Laterality Status Provider Name and Address Organization Details Recorded Time 04/06/19 15 Other completed Camila Tao [facility], 10/16/2014 13:10:06 04/06/19 13 Thyroid Surgery completed Lauren Tao [facility], 09/12/2014 10:15:46 04/06/19 09 Hysterectomy completed Gypsy Oh MD [address] [facility] [address] [facility],[address], [place], [address], [place] - [facility], 09/12/2014 10:22:32 04/06/18 98 Other completed Lauren Levy [place] - [facility], 09/12/2014 10:15:46 04/06/18 90 Caesarean Section completed Lauren Levy [place] - [facility], 09/12/2014 10:15:46 04/06/18 86 Tonsillectomy completed Lauren Levy [place] - [facility], 09/12/2014 10:15:46 Imaging Results None recorded. Procedure [...] Address Organization Details Last Updated DateTime 09/12/2014 660346.6 1458 g 160.02 cm 41.5 kg/m2 74 /min 121/64 mm[Hg] Lauren Hernandez in [facility], 09/12/2014 10:15:46 Date Recorded Body height Body weight Heart rate Body mass index (BMI) Systolic And Diastolic Provider Name and Address Organization Details Last Updated DateTime 10/16/2014 160.02 cm 734925.0 6036 g 93 /min 40.4 kg/m2 142/86 mm[Hg] Camila Hernandez in [facility], 10/16/2014 13:08:25 Date Recorded Body height Body weight Heart rate Body mass index (BMI) Systolic And Diastolic Provider Name and Address Organization Details Last Updated DateTime 11/09/2014 160.02 cm 508382.2 0695 g 79 /min 41.6 kg/m2 125/83 mm[Hg] Camila Hernandez in [facility], 11/09/2014 11:14:01 Date Recorded Body height Body mass index (BMI) Heart rate Body weight Systolic And Diastolic Provider Name and Address Organization Details Last Updated DateTime 12/08/2014 160.02 cm 41.8 kg/m2 96 /min 146127.0 59757 g 136/86 mm[Hg] Lauren Hernandez in [facility], 12/08/2014 14:42:32 Social History Question Answer Notes LastModified by Organizat ion Details LastModified Time Tobacco Smoking Status Never Smoker Not Available [employer] 02/07/2020 03:19:42 What Is Your Level Of Caffeine Consumption? Occasional [id number] Information not available 02/07/2020 What Type Of Diet Are You Following? REGULAR [id number] Information not available 02/07/2020 Which Illicit Or Recreational Drugs Have You Used? No [id number] Information not available 02/07/2020 Do You Reside In Or Have You Traveled To An Area Where Ebola Virus Transmission Is Active? No [id number] Information not available 02/07/2020 Education 12 Information no t available 09/12/2014 Marital Status Informatio n not available 09/12/2014 Are You Sexually Active? Yes [id number] Information not available 02/07/2020 How Much Tobacco Do You Smoke? No [id number] Information not available 02/07/2020 General Stress Level High Information not available 09/12/2014 How Many Years Have You Smoked Tobacco? 0 [id number] Information not available 02/07/2020 Sex: Unknown Functional Status Question Answer Note LastModified by Organizat ion Details LastModified Time What is your level of alcohol consumption? Occasional very rare. [id number] Information not available 02/07/2020 What is your occupation? [employer] Information not available 09/12/2014 What is your exercise level? Occasional [id number] Information not available 02/07/2020 Mental Status None recorded. Family History Relationship Description Onset Age of this Age Resolved Age Notes LastModified by Organization Details LastModified Time Maternal Grandmother Malignant neoplasm of breast Not available 07/2014 16:07:11 Unspecified Relation Malignant neoplasm of cervix uteri cervic al cancer and thyroi d cancer ,, neice Not available 12/08/2014 16:07:11 Mother Diabetes mellitus Not available 07/2014 16:07:11 Mother Hypertensive disorder Not available 07/2014 16:07:11 Mother Problem stroke Not availab le 12/08/2014 16:07:11 Father Diabetes mellitus Not available 07/2014 16:07:11 Father Hypercholest erolemia Not available 07/2014 16:07:11 Medical History Condition Response Anesthesia complications N High Blood Pressure N Thyroid Problems Y Kidney or Bladder Problems N GI Problems N Depression Y Lung Disease N Defects or Inherited Disease N History of Ovarian Cancer N Anemia N History of Breast Cancer N BRCA testing in past N Psychiatric Illness N Anxiety Disorder Y Diabetes N Arthritis Y Headaches or Migraines N Infertility N Asthma N History of Cancer Y Endometriosis Y Hepatitis N Heart Disease N Hypertension N Gynecological History Statement/Question Response Age at Menarche 11 Age at First Child 18 Obstetrics History GPAL:G 2 P 2 0 0 2 Type Value Full Term 2 Living 2 Total 2 Past Encounters Encounter ID Performer Location Encounter Start Date Encounter Closed Date Diagnosis/Indication Diagnosis SNOMED-CT Code Diagnosis ICD10 Code Diagnosis IMO Codes Diagnosis Note [id number] MD GYPSY Patton MD [address] [place] [address] 09/12/2014 09:48:24 09/12/2014 11:42:35 Pelvic mass 13140499 Cyst of ovary 83038662 [id number] MD GYPSY Patton MD [address] [place] [address] 10/16/2014 12:56:18 10/17/2014 07:57:16 Cyst of ovary 14958233 Hydrosalpinx [id number] MD GYPSY Patton MD [address] [place] [address] 11/09/2014 10:56:19 11/09/2014 16:00:53 Specialized medical examination 62262576 Screening for malignant neoplasm of rectum 621634941 Screening mammography [id number] MD GYPSY Patton MD [address] [place] [address] 12/08/2014 14:34:43 12/08/2014 16:16:34 Hydrosalpinx 79641403 Health Concerns Section Related Observation LastModified by Organization Detai ls LastModified Time None Recorded Concern Status LastModified by Organization Details LastModified Time None Recorded Advance Directives Directive None Recorded Payers Insurance Date Sequence Insurance Name Policy Number Policy Eisenberg Covered Member ID Eisenberg Member ID Guarantor Name 12/05/2014 1 [place] [id number] Pavan Francois [id number] Jodee Francois Notes Date Note Type Note Provider Name and Address Organization Details Recorded Time 09/12/2014 text/html ROS as noted in the HPI Gypsy Oh MD [address], [place], [address], [facility], 09/12/2014 11:29:37 10/16/2014 text/html ROS as noted in the HPI Gypsy Oh MD [address], [place], [address], [place] - [facility], 10/16/2014 14:40:33 11/09/2014 text/html ROS as noted in the HPI Gypsy Oh MD [address], [place], [address], [place] [facility], 11/09/2014 13:34:35 12/08/2014 text/html ROS as noted in the HPI Gypsy Oh MD [address], [place], [address], [place] - [facility], 12/08/2014 16:07:47 OBGyn Episode No OBEpisode recorded.
== END 2025-03-22 16:31 | disposition home or self-care (01) ==
LOC: HO.ENCR 15:44
PROVIDERS: PCP Internal Medicine; Visit Provider Internal Medicine Endocrinology, Diabetes & Metabolism
DX: Z85.850 Personal history of malignant neoplasm of thyroid (principal)
CPT/HCPCS: 99213

== ENCOUNTER → 2025-03-22 15:43 | Outpatient (BNVA) | payer OTHER, SELFPAY | PROVIDERS: PCP Internal Medicine; Visit Provider Internal Medicine Endocrinology, Diabetes & Metabolism | DX: Z85.850 Personal history of malignant neoplasm of thyroid (principal); Z90.89 Acquired absence of other organs | CPT/HCPCS: 99212 ==